=== PATIENT | female | born 1990 | race Caucasian/White ===

== ENCOUNTER 2017-09-16 08:27 | Day surgery (SDC) | payer BC ==
[2017-09-15 09:43] VITALS: BMI 28.1
[2017-09-16] MEDS ORDERED: Lidocaine 1% PF 5 ML VIAL ONE (08:53)
[2017-09-16] MEDS ORDERED: Sodium Bicarbonate 2.4 MEQ/5 ML ONE (08:53)
[2017-09-16] MEDS ORDERED: FLU VACC QS2017-18 36 mo. & older 0.5 ML SYRINGE IM ONE (10:15)
--- NOTE | 2017-09-16 11:08 | ULT ---
ULTRASOUND GUIDED FINE NEEDLE ASPIRATION AND CORE BIOPSY OF A COMPLEX FLUID COLLECTION IN RIGHT AXILL A: Date: 09/16/17 HISTORY: Complex fluid collection in right axilla persistent after multiple rounds of antibiotics. COMPARISON: 05/26/17. FINDINGS: Technically successful fine needle aspiration and two 20 gauge core biopsies of a complex fluid colle ction in the right axilla. Cloudy fluid was aspirated, approximately 3 mL. Two 20 gauge core biopsy s amples were obtained with a Temno needle. TECHNIQUE: Consent obtained to perform an ultrasound guided fine needle aspiration and core biopsy of a complex fluid collection in the right axilla which may or may not bee of lymphoid origin. Right axilla is pre pped and draped in the sterile fashion. 1% lidocaine, buffered with sodium bicarbonate, used for loca l anesthesia. Under ultrasound guidance, an 18 gauge needle was advanced into the fluid collection. D mikeris was present in real-time imaging. Aspiration was performed and approximately 3 mL of cloudy, sl ightly blood-tinged fluid was aspirated. After performing the aspiration, two 20 gauge core biopsies of the soft tissue component was performed with a Temno needle. The patient tolerated the procedure w ell. No immediate or postprocedure complications. IMPRESSION: Successful ultrasound guided FNA and core biopsy. POS: [facility]
[2017-09-16 11:32] VITALS: TEMP 98.4
[2017-09-16 12:13] LABS: BF Reference Range Comment Note:
[2017-09-16 13:53] LABS: BF Color Pink
[2017-09-16 13:54] LABS: RBC Count-Automated 93000 /cumm
[2017-09-16 14:40] LABS: Number Cells Counted-Fluids 100
== END 2017-09-16 10:00 | disposition home or self-care (01) ==
LOC: ULT 08:27
PROVIDERS: ATTEND Surgery
PROC: 07D53ZX Extraction of Right Axillary Lymphatic, Percutaneous Approach, Diagnostic (ICD-10-PCS; principal; 2017-09-16)
DX: R59.0 Localized enlarged lymph nodes (principal)
CPT/HCPCS: 38505; 85060; 87070; 87205; 88173; 88305; 88333; 89051; J2001

== ENCOUNTER 2018-12-02 10:09 | Day surgery (SDC) | payer BC ==
[2018-12-01 11:52] VITALS: BMI 28.3
[2018-12-02] MEDS ORDERED: Midazolam HCl 2 mg/2 ml Vial ONE ×2 (11:08→11:42)
[2018-12-02] MEDS ORDERED: Fentanyl 100 MCG/2 ML VIAL ONE (11:42)
[2018-12-02] MEDS ORDERED: Bupivacaine HCl 0.5%/Epinephrine 1:200,000/PF 30 ml Vial ONE (11:55)
--- NOTE | 2018-12-02 13:16 | OP ---
DATE OF PROCEDURE: 12/02/2018 PREOPERATIVE DIAGNOSIS: Chronic right axillary lymphadenitis. POSTOPERATIVE DIAGNOSIS: Chronic right axillary lymphadenitis. PROCEDURE PERFORMED: Exploration, incision and drainage of right axilla. ANESTHESIA: General. ESTIMATED BLOOD LOSS: Minimal. COMPLICATIONS: None. SPECIMENS: Culture sent for anaerobes and aerobes. Tissue sent for pathology. DESCRIPTION OF PROCEDURE: The patient was taken to the operating room and laid supine on the operating room table. After general anesthetic was obtained, the right axilla was prepped and draped in a sterile fashion. She had an drainage fistula from the central axilla to a spot on her proximal right forearm. This tunnel was probed. The more distal hole communicated with a large pocket in the right axilla. Incision was made over the pocket in the axilla. The all loculations broken up. There was some necrotic appearing tissue that was sent to Path for final diagnosis. The wound was irrigated. All devitalized tissue was debrided. Meticulous hemostasis was obtained. Cultures were taken and the wound was packed using iodoform gauze. The patient is en route to Recovery in stable condition. All instrument counts, needle counts, and lap counts were correct. Job ID: [id number]
[2018-12-02] MEDS ORDERED: PROPOFOL 200 MG/20 ML VIAL ONE (15:53)
[2018-12-02] MEDS ORDERED: Lidocaine 1% PF 5 ML VIAL ONE (15:53)
[2018-12-02] MEDS ORDERED: Ondansetron PF 4 MG/2 ML Vial ONE (15:53)
[2018-12-02] MEDS ORDERED: Dexamethasone 20 MG/5 ML VIAL ONE (15:53)
== END 2018-12-02 14:42 | disposition home or self-care (01) ==
LOC: SDC 10:09
PROVIDERS: ATTEND Surgery
PROC: 0J9D0ZZ Drainage of Right Upper Arm Subcutaneous Tissue and Fascia, Open Approach (ICD-10-PCS; principal; 2018-12-02)
DX: I88.1 Chronic lymphadenitis, except mesenteric (principal); B95.7 Other staphylococcus as the cause of diseases classified elsewhere; B96.89 Other specified bacterial agents as the cause of diseases classified elsewhere; Z79.899 Other long term (current) drug therapy; Z88.2 Allergy status to sulfonamides
CPT/HCPCS: 87070; 87076; 87205; 88304; J0670; J1100; J2001; J2250; J2405; J2704; J3010